=== PATIENT | male | born 2000 | race Hispanic/Latino ===

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

== ENCOUNTER 2021-05-01 13:15 | Emergency (ER) | payer OTHER ==
[~2021-05-01] VITALS: Ht 167.6 cm; Wt 54.0 kg
--- OUTSIDE RECORDS SUMMARY | 2021-05-01 13:22 | XMS ---
PreManage Notification: SAURABH JEROME Security Manager Of Application Development Events No recent Security Events currently on file CRITERIA MET - Group Notification CARE PROVIDERS SYLVESTER KNIGHT [facility] 01/18/2019-Current PHONE: [phone] Barak has no Care Guidelines for this patient. ECarmel VISIT COUNT (12 MO.) 1 [facility] TOTAL 1 NOTE: Visits indicate total known visits. ED/UCC VISIT TRACKING (12 MO.) 05/01/2021 13:16 [facility] [place] TYPE: Emergency COMPLAINT: - LEG PAIN INPATIENT VISIT TRACKING (12 MO.) No inpatient visits to display in this time frame [id number]
[2021-05-01] MEDS ORDERED: HYDROCODON-ACE1 EA10 PO (14:12)
[2021-05-01] MEDS ORDERED: CRUTCHES XX (14:17)
== END 2021-05-01 14:54 | disposition home or self-care (01) ==
LOC: ED 13:15
DX: S83.004A Unspecified dislocation of right patella, initial encounter (principal); J45.909 Unspecified asthma, uncomplicated; Z87.891 Personal history of nicotine dependence; X50.0XXA Overexertion from strenuous movement or load, initial encounter
CPT/HCPCS: 73560; 99283-25; A9270

== ENCOUNTER 2023-10-12 06:42 | Emergency (ER) | payer OTHER ==
[~2023-10-12] VITALS: Ht 167.6 cm; Wt 50.0 kg
[~2023-10-12 06:42] MED LIST changes: +CRUTCHES XX; +HYDROCODON-ACE1 EA10 PO
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
[2023-10-12] MEDS ORDERED: ACETAMINOPHEN 500 MG TAB PO ONE (07:15)
[2023-10-12 08:40] VITALS: BP 118/63
== END 2023-10-12 08:40 | disposition home or self-care (01) ==
LOC: ED 06:42
DX: S60.222A Contusion of left hand, initial encounter (principal); M54.2 Cervicalgia; Y09 Assault by unspecified means; J45.909 Unspecified asthma, uncomplicated; Z87.891 Personal history of nicotine dependence
CPT/HCPCS: 70450; 72125; 73130; 99284-25; A9270

== ENCOUNTER 2024-06-10 11:12 | Emergency (ER) | payer OTHER ==
[~2024-06-10] VITALS: Ht 167.6 cm; Wt 63.8 kg
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
[2024-06-10 13:51] VITALS: BP 109/71
== END 2024-06-10 13:51 | disposition home or self-care (01) ==
LOC: ED 11:12
DX: S29.9XXA Unspecified injury of thorax, initial encounter (principal); J45.909 Unspecified asthma, uncomplicated; W01.0XXA Fall on same level from slipping, tripping and stumbling without subsequent striking against object, initial encounter; Y92.830 Public park as the place of occurrence of the external cause; Z79.899 Other long term (current) drug therapy; Z87.891 Personal history of nicotine dependence
CPT/HCPCS: 71045; 71100; 99283-25

== ENCOUNTER 2024-09-11 08:43 | Emergency (ER) | payer OTHER ==
[~2024-09-11] VITALS: Ht 167.6 cm; Wt 62.6 kg
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
[2024-09-11] MEDS ORDERED: IBUPROFEN 600 MG TAB PO ONE (10:15)
[2024-09-11] MEDS ORDERED: TETANUS-DIPHTHERIA TOXOIDS/PF 0.5 ML VIAL IM ONE (10:15)
[2024-09-11] MEDS ORDERED: DIPHTH,PERTUSS(ACELL),TET VAC 0.5 ML SYRINGE IM ONE (10:30)
[2024-09-11 11:09] VITALS: BP 106/73
== END 2024-09-11 11:10 | disposition home or self-care (01) ==
LOC: ED 08:43
DX: S60.052A Contusion of left little finger without damage to nail, initial encounter (principal); J45.909 Unspecified asthma, uncomplicated; X58.XXXA Exposure to other specified factors, initial encounter; Z87.891 Personal history of nicotine dependence
CPT/HCPCS: 73140; 90471; 90715; 99283-25; A9270

== ENCOUNTER 2024-10-27 17:29 | Emergency (ER) | payer OTHER ==
[~2024-10-27] VITALS: Ht 167.6 cm; Wt 64.7 kg
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
[2024-10-27] MEDS ORDERED: LIDOCAINE HCL 4% 1 EACH PATCH TD ONE (20:30)
[2024-10-27] MEDS ORDERED: KETOROLAC TROMETHAMINE 60 MG/2 ML VIAL IM ONE (20:30)
[2024-10-27] MEDS ORDERED: CYCLOBENZAPRINE HCL 10 MG TAB PO ONE (20:30)
[2024-10-27] MEDS ORDERED: LIDODERM1 EACH TOP (21:18)
[2024-10-27] MEDS ORDERED: CYCLOBENZAPRINE10 MG PO (21:18)
[2024-10-27 21:28] VITALS: BP 119/82
== END 2024-10-27 21:35 | disposition home or self-care (01) ==
LOC: ED 17:29
DX: S39.012A Strain of muscle, fascia and tendon of lower back, initial encounter (principal); J45.909 Unspecified asthma, uncomplicated; X58.XXXA Exposure to other specified factors, initial encounter; Z87.891 Personal history of nicotine dependence
CPT/HCPCS: 96372; 99283; A9270; J1885

== ENCOUNTER 2024-12-12 12:19 | Emergency (ER) | payer OTHER ==
[~2024-12-12] VITALS: Ht 167.6 cm; Wt 59.9 kg
--- OUTSIDE RECORDS SUMMARY | ~2024-12-12 | XMS | Continuity of Care Document ---
Demographics + + + | Address | [address] [address] | | | [place] [address] | + + + | Preferred Language | Unknown | + + + | Marital Status | Never | + + + | Zoroastrian Affiliation | Unknown | + + + | Race | Unknown | + + + | Ethnic Group | Not or | + + + Author + + + | Author | [facility] | + + + | Organization | [facility] | + + + | Address | [address] | | | [place] [address] | + + + | Phone | | + + + Care Team Providers + + + + | Care Hydraulic Press In Operator Name | Role | Phone | + + + + Unavailable | Unavailable | + + + + Unavailable | Unavailable | + + + + Allergies and Intolerances + + + + + + | date | description | facility | reaction | severity | + + + + + + | 2024-10-27 | UNK | [facility] - | (no reaction) | (no severity) | | 00:00 | | [facility] | | | + + + + + + Encounters No information. Functional Status No information. Immunizations No information. Medications + + + + | date | description | facility | + + + + | 2024-10-27 00:00 | Lidocaine | [facility] | | | | [facility] | + + + + | 2024-10-27 00:00 | CYCLOBENZAPRINE HCL | [facility] | | | | [facility] | + + + + Problems + + + + | date | description | facility | + + + + | 2024-10-27 00:00 | Strain of lumbar region | [facility] | | | | [facility] | + + + + Procedures No information. Results/Labs No information. Social History +--------+ + + | date | description | facility | +--------+ + + Vital Signs + + + +---------+ | date | measurement | value | units | + + + +---------+ | 2024-10-27 00:00 | BMI | 23.0 | kg/m2 | + + + +---------+ | 2024-10-27 00:00 | BP_diastolic | 82 | mmHg | + + + +---------+ | 2024-10-27 00:00 | BP_systolic | 119 | mmHg | + + + +---------+ | 2024-10-27 00:00 | heart_rate | 63 | /min | + + + +---------+ | 2024-10-27 00:00 | height_metric | 167.64 | cm | + + + +---------+ | 2024-10-27 00:00 | height_standard | 66 | in | + + + +---------+ | 2024-10-27 00:00 | o2_saturation | 97 | % | + + + +---------+ | 2024-10-27 00:00 | respiration_rate | 16 | /min | + + + +---------+ | 2024-10-27 00:00 | | 98.1 | F | | | temperature_standar | | | | | d | | | + + + +---------+ | 2024-10-27 00:00 | weight_metric | 64.699 | kg | + + + +---------+ | 2024-10-27 00:00 | weight_standard | 142.637 | lb | + + + +---------+"
[~2024-12-12 12:19] MED LIST changes: +CYCLOBENZAPRINE10 MG PO; +LIDODERM1 EACH TOP
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
[2024-12-12] MEDS ORDERED: ACETAMINOPHEN500 M1 PO (12:42)
[2024-12-12] MEDS ORDERED: HYDROCODON-ACE1 EA11 PO (13:28)
[2024-12-12] MEDS ORDERED: HYDROCODONE/ACETA 7.5/325 TAB PO ONE (13:30)
[2024-12-12] MEDS ORDERED: fentaNYL citrate 100 MCG/2 ML VIAL IV ONE (13:30)
[2024-12-12 15:12] VITALS: BP 105/71
== END 2024-12-12 15:12 | disposition home or self-care (01) ==
LOC: ED 12:19
DX: S83.004A Unspecified dislocation of right patella, initial encounter (principal); J45.909 Unspecified asthma, uncomplicated; Z87.891 Personal history of nicotine dependence; Z79.899 Other long term (current) drug therapy; W18.30XA Fall on same level, unspecified, initial encounter
CPT/HCPCS: 27560; 73560; 96374; 99283-25; A9270; J3010